=== PATIENT | male | born 1960 | race Caucasian/White ===

== ENCOUNTER 2017-04-12 11:01 | Outpatient (CLI) | payer OTHER ==
--- NOTE | 2017-04-14 16:49 | DIAGNOSTIC IMAGING REPORT ---
PROCEDURE: NM CARDIAC STRESS TEST INDICATION: Essential hypertension TECHNIQUE: 9 mCi technetium 99m labeled sestamibi used for rest imaging and 32 mCi for stress imaging. This is a pharmacologic stress test. Please refer to separately dictated stress test for details of that portion of the study. COMPARISON: None FINDINGS: SPECT imaging shows normal perfusion. Gated SPECT imaging shows ejection fraction of 44%, end-diastolic volume of 144 ml, end-systolic volume of 81 ml. There is minimal global hypokinesis. No segmental wall motion abnormalities. T.i.d. score is 1.06 IMPRESSION: No infarct or ischemia. Mildly decreased left ventricular ejection fraction at 44% Minimally dilated left ventricle with end diastolic volume of 144 ml.
== END 2017-04-12 23:00 ==
LOC: NM SRH 11:01
DX: I10 Essential (primary) hypertension (principal)

== ENCOUNTER 2017-05-25 09:50 | Outpatient (CLI) | payer OTHER | END 2017-05-25 23:00 | disposition home or self-care (01) | LOC: LAB SRH 09:50 | DX: I10 Essential (primary) hypertension (principal) | CPT/HCPCS: 90074; 90100; 90270; 91241 ==